=== PATIENT | male | born 1965 | race Caucasian/White ===

== ENCOUNTER → 2018-05-01 | Day surgery (SDC) | payer MEDICARE, MEDICAID ==
[~2018-05-01] MED LIST: APIDRA; ATIVAN0.5 MG PO; COREG25 MG PO; FISH OIL 1,001000 M2 PO; GLUCOPHAGE500 MG PO; HYDRALAZINE 2525 MG PO; LANTUS SC; LASIX 40 MG TAB40 M2 PO; LEVEMIR100 UNIT/1 SUBQ; LIPITOR10 MG PO; NORCO 5-325 TA1 EACH PO; NOVOLOG100 UNIT/1 SUBQ; PLAVIX 75 MG TA75 M1 PO; RENVELA800 MG PO; SERTRALINE HCL50 MG PO; SUPER CALCIUM600 MG PO; VITAMINC500 PO
[2018-05-01 06:44] LABS: HEMATOCRIT 38.6 % (42.0-52.0); HEMOGLOBIN 12.9 gm/dL (14.0-18.0); MCH 29.5 pg (26.0-34.0); MCHC 33.5 g/dL (28.0-37.0); MPV 6.9 fl. (7.2-11.1); RBC 4.38 mil/uL (4.50-6.00); RDW-CV 16.6 % (10.5-14.5); WBC 5.3 thou/uL (4.0-11.0)
[2018-05-01 06:54] LABS: INR 1.1
[2018-05-01 06:55] LABS: CALCIUM 8.8 mg/dL (8.5-10.1); CREATININE 5.1 mg/dL (0.6-1.3); POTASSIUM 3.7 mmol/L (3.5-5.1)
[2018-05-01 07:00] LABS: ALBUMIN 3.9 g/dL (3.4-5.0); TOTAL BILIRUBIN 1.6 mg/dL (<0.1-1.0); TOTAL PROTEIN 8.1 g/dL (6.4-8.2)
--- NOTE | 2018-05-01 15:00 | EKG ---
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 05/01/18 1500 0734 Balbir Darnell MD, [facility] /EPI
--- NOTE | 2018-05-06 14:06 | PATH ---
[facility] [address] [place] [address] PATHOLOGY RPT PROCEDURE Name: MIRANDA VELAZQUEZ [id number] Admission: 05/01/18 Date of : 65 Discharge: Report #: [id number] Path Case #: [id number] [facility] Accession Number: [id number] . 01 Material submitted: . PART A: ESOPHAGEAL BIOPSY AT 37CM PART B: ESOPHAGEAL BIOPSY AT 32CM . 01 Clinical history: . Dysphagia . 02 Diagnosis: A. Esophageal biopsy at 37 cm: - Mild chronic esophagitis typical of reflux. See comment. . B. Esophageal biopsy at 32 cm: - Mild chronic esophagitis typical of reflux. See comment. QT/05/06/2018 . 02 Comment: Eosinophils average less than five per high power field in both of the biopsies. (DYLON:pit 05/06/2018) . 02 Electronically signed: . Dani Lu MD, Pathologist NPI- [id number] . 01 Gross description: . A. Received in formalin labeled "Miranda Velazquez, esophageal biopsy at 37 cm for dysphagia," are 2 segments of beck soft tissue measuring 0.7 x 0.2 x 0.1 cm in aggregate dimensions and ranging from 0.3 to 0.4 cm in maximum dimension. The specimen is submitted entirely in cassette A1. . B. Received in formalin labeled "Miranda Velazquez, esophageal biopsy at 32 cm for dysphagia," are 2 segments of beck soft tissue measuring 1.1 x 0.2 x 0.1 cm in aggregate dimensions and ranging from 0.4 to 0.7 cm in maximum dimension. The specimen is submitted entirely in cassette B1. (TSD; 05/04/2018) TOB/TOB . 02 Pathologist provided ICD-10: K20.9 . 02 CPT . 159519, 182307 Specimen Comment: A courtesy copy of this report has been sent to Specimen Comment: [phone], [place] [address] PATHOLOGY RPT PROCEDURE Name: MIRANDA VELAZQUEZ VALERIO [facility] [id number] Admission: 05/01/18 Date of : 65 Discharge: Report #: [id number] Path Case #: [id number] Specimen Comment: Report sent to and Performed at: 01 [facility] [address], [place], [place] [id number] MD Yahir Jackman MD Phone: [phone] Performed at: 02 [facility] [address], [place], [place] [address] MD Dani Lu MD Phone: [phone]
== END | disposition home or self-care (01) ==
LOC: M.SUR 06:19
PROVIDERS: Internal Medicine Gastroenterology
DX: K20.8 Other esophagitis (principal); K44.9 Diaphragmatic hernia without obstruction or gangrene; I10 Essential (primary) hypertension; I25.10 Atherosclerotic heart disease of native coronary artery without angina pectoris; E11.9 Type 2 diabetes mellitus without complications; E78.5 Hyperlipidemia, unspecified; F32.9 Major depressive disorder, single episode, unspecified; Z98.82 Breast implant status; Z79.02 Long term (current) use of antithrombotics/antiplatelets; Z99.2 Dependence on renal dialysis; Z88.8 Allergy status to other drugs, medicaments and biological substances; Z79.899 Other long term (current) drug therapy

== ENCOUNTER → 2018-05-22 | Outpatient (CLI) | payer MEDICARE, MEDICAID | LOC: M.RAD 05-11 11:00 | DX: R13.12 Dysphagia, oropharyngeal phase (principal); R05 Cough; R11.0 Nausea ==

== ENCOUNTER 2020-07-27 08:23 | Inpatient (IN) | payer MEDICARE, MEDICAID ==
[2020-07-27] VITALS (46 sets, daily range): BP systolic 106–169; BP diastolic 48–106
[~2020-07-27] VITALS: Ht 175.3 cm; Wt 77.5 kg
--- NOTE | ~2020-07-27 | EMS ---
[place] [address] EMS Patient Care Report Name: MIRANDA VELAZQUEZ Room: [address] IN M.R.#: [id number] Admission: 07/27/20 Attend Phys: Syed Haji MD Discharge: Date of : 65 Report #: [id number] THIS REPORT FOR: //name// Report Transmitted: 07/27/2020 18:24 EMS Care Summary [facility] Incident [id number] @ 07/27/2020 07:41 Incident Location [address] [place] [address] 13 room 16 Patient MIRANDA VELAZQUEZ Male, 55 Years 1965 Patient Address [address] [place] [address] Patient History Congestive Heart Failure (CHF),Chronic Obstructive Pulmonary Disease (COPD),Diabetes,Hypertension (HTN),Kidney/Renal Failure,Chronic Pain,Dialysis, Patient Allergies Morphine,Lisinopril,Reglan, Patient Medications Lasix, Metformin, Metoprolol, Ibuprofen, Chief Complaint Altered mental status Disposition Transported Lights/[place] Dispatch Reason Unknown Problem/Person Down Transported To [facility] Narrative Dispatch: [facility] was dispatched for a male patient who is unresponsive on his floor, last known well 48 hours prior. Med 1 copied tones [place] [address] EMS Patient Care Report Name: MIRANDA VELAZQUEZ Room: [address] IN [facility]#: [id number] Admission: 07/27/20 Attend Phys: Syed Haji MD Discharge: Date of : 65 Report #: [id number] Chief Complaint: Med 1 arrived on scene to find the patient lying supine on the floor. Patient is alert and does appear to be in mild distress. Patient is A&OX4, GCS 15. Patient is naked and covered in feces. Patient states he does not remember how he got onto the floor, and is unable to tell EMS if he is hurting anywhere. History of present illness/DARRYL: Patient is in stage 4 kidney failure and was supposed to receive dialysis on the morning of 07/27/20. When the patient did not answer the door for the [employer] independent driver, the independent driver called 911 for an unresponsive patient. Patient is semi compliant with his dialysis treatments, per the independent driver. Assessment: Airway: Clear, patent, and self maintained. Breathing: Clear, and equal bilaterally. Non labored. Circulation: Skin is pink, warm, and dry. Strong radial pulses. Disability: A&OX4, GCS 15. Exposures: No life threats were found. See "assessments" tab for further. 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 Treatments: ALS assessment. Cervical collar. 20G IV RAC. 12 lead EKG showing new onset RBBB STEMI activation. Serial 12 lead EKG's. ETCO2 via nasal cannula at 2 liters O2. Vitals monitored throughout transport. Summary: With the assistance of EMS and HFD, the patient was placed onto the monitor and an IV was established. A cervical collar was placed as well. Med 1 went en route emergent to [facility]. Radio report was given and a STEMI activation was made with no further questions or orders were received. The patient's overall condition declined throughout transport. The patient became altered and was sluggish to respond to tasks. Med 1 arrived at destination and was taken to room 1 in the ED where he was sheet transferred onto the bed. Report was given and signatures and paperwork were received. Med 1 returned back in service. Initial Vitals @08:01P: 132,R: 21,EtCO2: 14,SpO2: 98,[place] Suspected: false @08:18P: 141,R: 21,EtCO2: 31, @08:10 @08:26P: 143,R: 19,BP: 131/67,EtCO2: 29, @08:29BP: 112/92, @08:13R: 22,BP: 135/63,EtCO2: 29, @07:55P: 99,R: 20,BP: 140/96,GCS: 15,Glucose: 107,Revised Trauma: 12, [place] [address] EMS Patient Care Report Name: MIRANDA VELAZQUEZ Room: [address] ADM IN M.R.#: [id number] Admission: 07/27/20 Attend Phys: Syed Haji MD Discharge: Date of : 65 Report #: [id number] @08:31P: 118,R: 20,SpO2: 97, Assessments @07:55MENTAL:Person Oriented,Time Oriented,Place Oriented,Event Oriented,SKIN:HEENT:Eyes: Left: Other,LUNG SOUNDS:ABDOMEN:PELVIS//GI:EXTREMITIES:Capillary Refill: Right Upper: < 2 Sec,PULSE:Radial: 2+ Normal,NEURO:@09:24MENTAL:Confused,Person Oriented,Event Oriented,SKIN:HEENT:Eyes: Left: Other,LUNG SOUNDS:ABDOMEN:PELVIS//GI:EXTREMITIES:Capillary Refill: Right Upper: < 2 Sec,PULSE:Radial: 2+ Normal,NEURO: Impression Altered Mental Status Procedures @08:32Saline Lock 0cc (20 ga) Site: Antecubital-RightResponse: UnchangedSucceeded@07:55ALS AssessmentResponse: UnchangedSucceeded@08:1812-Lead ECGResponse: UnchangedSucceeded@08:0112-Lead ECGResponse: UnchangedSucceeded@08:3112-Lead ECGResponse: UnchangedSucceeded@08:1312-Lead ECGResponse: UnchangedSucceeded@08:1012-Lead ECGResponse: UnchangedSucceeded@08:2612-Lead ECGResponse: UnchangedSucceeded@09:42Spinal Motion RestrictionResponse: UnchangedSucceeded Timeline 07:41,Call Received 07:41,Dispatched 07:43,En Route 07:47,On Scene 07:48,At Patient 07:55,ALS Assessment,Response: UnchangedSucceeded, 07:55,BP: 140/96 M,PULSE: 99,RR: 20 R,SPO2: Ox,ETCO2: ,B,PAIN: ,GCS: 15, 08:01,12-Lead ECG,Response: UnchangedSucceeded, 08:01,BP: / M,PULSE: 132,RR: 21 R,SPO2: 98 Ox,ETCO2: 14 ,BG: ,PAIN: ,GCS: , 08:04,Depart Scene 08:10,12-Lead ECG,Response: UnchangedSucceeded, 08:10,BP: / M,PULSE: ,RR: R,SPO2: Ox,ETCO2: ,BG: ,PAIN: ,GCS: , 08:13,12-Lead ECG,Response: UnchangedSucceeded, 08:13,BP: 135/63 M,PULSE: ,RR: 22 R,SPO2: Ox,ETCO2: 29 ,BG: ,PAIN: ,GCS: , 08:18,12-Lead ECG,Response: UnchangedSucceeded, 08:18,BP: / M,PULSE: 141,RR: 21 R,SPO2: Ox,ETCO2: 31 ,BG: ,PAIN: ,GCS: , 08:26,12-Lead ECG,Response: UnchangedSucceeded, 08:26,BP: 131/67 M,PULSE: 143,RR: 19 R,SPO2: Ox,ETCO2: 29 ,BG: ,PAIN: ,GCS: , 08:29,BP: 112/92 M,PULSE: ,RR: R,SPO2: Ox,ETCO2: ,BG: ,PAIN: ,GCS: , 08:31,12-Lead ECG,Response: UnchangedSucceeded, 08:31,BP: / M,PULSE: 118,RR: 20 R,SPO2: 97 Ox,ETCO2: ,BG: ,PAIN: ,GCS: , 08:31,[place] [address] EMS Patient Care Report Name: MIRANDA VELAZQUEZ Room: [address] IN M.R.#: [id number] Admission: 07/27/20 Attend Phys: Syed Haji MD Discharge: Date of : 65 Report #: [id number] 08:32,Saline Lock 0cc 20 ga Site: Antecubital-Right,Response: UnchangedSucceeded, 09:42,Spinal Motion Restriction,Response: UnchangedSucceeded, 11:04,Call Closed Disclaimer v1.1 Copyright 2020 [employer] This EMS Care Summary contains data elements from the applicable legal record (which may be displayed differently). It is designed to provide pertinent information for the following purposes: continuity of care, clinical quality, and state data reporting. The complete legal record is available to ED staff and administrators of the receiving hospital in [employer] Patient Tracker. All data is provided "as is."
[2020-07-27 08:53] LABS: HEMOGLOBIN 10.6 gm/dL (14.0-18.0); MCH 29.1 pg (26.0-34.0); NUCLEATED RBCS 0 /100WBC; WBC 13.8 thou/uL (4.0-11.0)
[2020-07-27 08:55] LABS: HEMATOCRIT 33.8 % (42.0-52.0); MCHC 31.2 g/dL (28.0-37.0); MCV 93.2 fL (80.0-100.0); MPV 9.2 fl. (7.2-11.1); PLATELET COUNT* 163 thou/uL (150-400); RBC 3.63 mil/uL (4.50-6.00); RDW-CV 15.8 % (10.5-14.5)
[2020-07-27 09:06] LABS: APTT 29.3 Seconds (25.0-31.3); CREATININE 15.2 mg/dL (0.6-1.3); INR 1.1; PROTIME 11.9 Seconds (9.20-11.50)
[2020-07-27 09:11] LABS: POTASSIUM 9.8 mmol/L (3.5-5.1)
[2020-07-27] MEDS ORDERED: KEPPRA XR500 MG PO (09:26)
[2020-07-27] MEDS ORDERED: ARTIFICIAL TEAR1510 OPHTHALMIC (09:27)
[2020-07-27] MEDS ORDERED: MACROBID 100 M100 MG PO (09:27)
[2020-07-27] MEDS ORDERED: PROBIOTIC1 EAC7 PO (09:29)
[2020-07-27] MEDS ORDERED: PROMETH-CODEIN 65 ML PO (09:29)
[2020-07-27] MEDS ORDERED: [UNRECOGNIZED DRUG - OTHER] (09:31)
[2020-07-27] MEDS ORDERED: MIRCERA50 MCG/0.3 IV (09:31)
--- NOTE | 2020-07-27 09:33 | NUR ---
VIVIENNE KIM CALLED FROM [facility] IN [place]. SHE STATES THAT THE PATIENT WAS SUPPOSED TO HAVE DIALYSIS TODAY AND HAS BEEN LOOKING FOR HIM. SHE INFORMED THIS RN OF THE PATIENT'S MED LIST AND STATES SHE WILL BE HAPPY TO FAX INFORMATION ABOUT HIS SCHEDULED DIALYSIS INFORMATION IF HE DOES GET DIALYSIS AT OUR FACILITY TODAY. HER PHONE NUMBER IS [phone].
[2020-07-27 09:37] LABS: ABSOLUTE LYMPHOCYTES 0.7 thou/uL (0.8-5.3); ABSOLUTE MONOCYTES 0.3 thou/uL (0.0-1.2); ABSOLUTE NEUTROPHILS 12.8 thou/uL (1.6-8.1); ANISOCYTOSIS 1+; PLATELET ESTIMATE ADEQUATE; POIKILOCYTOSIS 1+
--- NOTE | 2020-07-27 14:49 | EKG ---
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 : 1965 Requested By: Luis Manuel Ruff Order Number: [id number] MD: Dustin Gonzalez Measurements Intervals [place] Rate: 138 P: MA: QRS: 152 QRSD: 186 T: 246 QT: 284 QTc: 431 Interpretive Statements sinus rhythm artifact noted Right bundle branch block Baseline wander in lead(s) V5 Compared to ECG 05/01/2018 07:34:07 Right bundle-branch block now present Electronically Signed On 07-27-2020 14:49:07 CDT by Dustin Gonzalez [email or web address] <ELECTRONICALLY SIGNED> By: Dustin Gonzalez MD, [facility] 07/27/20 1449 0835 0835 Dustin Gonzalez MD, [facility] /EPI
--- NOTE | 2020-07-27 15:38 | EKG ---
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 : 1965 Requested By: Syed Haji Order Number: [id number] Lamar MD: Dustin Gonzalez Measurements Intervals [place] Rate: 134 P: FL: QRS: 132 QRSD: 188 T: 209 QT: 331 QTc: 495 Interpretive Statements RBBB and LPFB wide complex rhythm, consider accelerated idioventricular rhythm Compared to ECG 07/27/2020 08:35:53 no change Electronically Signed On 07-27-2020 15:38:36 CDT by Dustin Gonzalez [email or web address] <ELECTRONICALLY SIGNED> By: Dustin Gonzalez MD, [facility] 07/27/20 1538 0855 0855 Dustin Gonzalez MD, [facility] /EPI
[2020-07-27 17:21] LABS: CALCIUM 8.9 mg/dL (8.5-10.1); POTASSIUM 5.1 mmol/L (3.5-5.1)
[2020-07-27 17:23] LABS: CREATININE 6.1 mg/dL (0.6-1.3)
--- NOTE | 2020-07-27 19:47 | NUR ---
1630 PATIENT WAS NOTED TO HAVE O2 SATS DECREASING INTO THE 70'S NURSE WENT TO CHECK ON PATIENT. PATIENT WAS FOUND TO BE HAVING A SEIZURE.AND LIPS WHERE TURNING BLUE, SATS DECREASING INTO 42% CODE BLUE CALLED AND BAGGING INTIATED. PATIENT PLACED ON SIDE. IT IS THOUGHT THAT DURING SEIZURE PATIENT TOUNGUE COVERED AIRWAY. DR DE SANTIAGO UPDATED AND ORDERS RECIEVED, CECIL STARTED. PATIENT IS POST ICTAL. NO FURTHER CONCERNS AT THIS TIME. WILL CONTINUE TO ,MONITOR AND CARE PER PLAN OF CARE.
[2020-07-28] VITALS (58 sets, daily range): BP systolic 82–183; BP diastolic 41–143
[2020-07-28 04:19] LABS: HEMATOCRIT 29.3 % (42.0-52.0); HEMOGLOBIN 9.7 gm/dL (14.0-18.0); MCH 29.8 pg (26.0-34.0); MCV 90.4 fL (80.0-100.0); MPV 8.5 fl. (7.2-11.1); RBC 3.24 mil/uL (4.50-6.00); RDW-CV 15.7 % (10.5-14.5); WBC 6.4 thou/uL (4.0-11.0)
[2020-07-28 04:28] LABS: CALCIUM 7.9 mg/dL (8.5-10.1); MAGNESIUM 2.6 mg/dL (1.8-2.4); POTASSIUM 5.4 mmol/L (3.5-5.1)
[2020-07-28 04:33] LABS: CREATININE 7.9 mg/dL (0.6-1.3)
--- NOTE | 2020-07-28 10:24 | CON ---
[address] [address] CONSULTATION Name: MIRANDA VELAZQUEZ Room: [address] IN .R.#: [id number] Admission: 07/27/20 Attend Phys: Syed Haji MD Discharge: Date of : 65 Report #: [id number] THIS REPORT FOR: cc: Fracisco Broderick MD, Syed MD ~ Roger Santiago MD DATE OF SERVICE: 07/27/2020 REQUESTING PHYSICIAN: Syed Haji MD REASON FOR CONSULTATION: Hyperkalemia and end-stage renal disease. HISTORY OF PRESENT ILLNESS: The patient is a 55-year-old white male with medical history significant for end-stage renal disease. He has been on dialysis on Friday, , and Friday schedule at [facility]. His last dialysis was a week ago. The patient presents with altered mental status. He was found by some workers at hotel where the patient was staying. His potassium was 9.8, blood sugar was low, was admitted to the hospital. PAST MEDICAL HISTORY: 1. End-stage renal disease. 2. Diabetes mellitus type 2. 3. History of multiple strokes. 4. History of coronary artery disease. FAMILY HISTORY: Noncontributory. SOCIAL HISTORY: Unknown. REVIEW OF SYSTEMS: The patient is very shaky. He ____ does not really answer some very simple questions. PHYSICAL EXAMINATION: GENERAL: He is on dialysis. He is awake. VITAL SIGNS: Blood pressure now 150/58, heart rate 89, afebrile. HEENT: Pupils are round. NECK: Supple. LUNGS: Decreased air movements. CARDIOVASCULAR: Tachycardia. ABDOMEN: Soft. LOWER EXTREMITIES: No edema. ASSESSMENT: 1. End-stage renal disease. [address] [address] CONSULTATION Name: MIRANDA VELAZQUEZ Room: [address]#: [id number] Admission: 07/27/20 Attend Phys: Syed Haji MD Discharge: Date of : 65 Report #: [id number] 2. Hyperkalemia due to noncompliance with his dialysis. His potassium was 9.8. 3. Noncompliance with dialysis. 4. Diabetes mellitus type 2. PLAN: Dialysis today and tomorrow. <ELECTRONICALLY SIGNED> By: Roger Santiago MD 07/28/20 1024 1153 1312Aleonel Santiago MD /nt
--- NOTE | 2020-07-28 16:00 | NUR ---
PT.HAD STATED EARLIER THAT HE WANTED TO MAKE SURE DAUGHTER KNEW HE WAS IN THE HOSPITAL. CM CALLED DAUGHTER,JUAQUIN KATZ AT [phone] TO MAKE SURE SHE KNEW. SHE WAS NOT AWARE HE WAS IN THE HOSPITAL. SHE SAID THEY DON'T TALK ALL THE TIME BUT SHE IS THE ONLY ONE HE TALKS TO. TOLD HER HE WOULD BE MOVING OUT OF ICU THIS EVENING TO TELE FLOOR AND HE WAS DOING BETTER. DISCUSSED PLAN OF CARE. SHE WAS GOING TO CALL THE HOTEL WHERE HE LIVES TO LET THEM KNOW HE IS IN THE HOSPITAL. SHE WOULD LIKE TO BE KEPT INFORMED OF HOW HE IS DOING.
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
--- NOTE | 2020-07-28 18:33 | NUR ---
Patient had dailysis this shift. During treatment patient went into Afib RVR. 5mg Metoprolol order by Dr Haji. Not effective. Order for cardizem drip and titrate to keep HR under 100.
--- NOTE | 2020-07-28 22:59 | NUR ---
2119 PT TO BEDSIDE COMMODE WITH STANDBY ASSIST. PT BECAME INCREASINGLY LESS RESPONSIVE, HYPOTENSIVE AND LEANING TO RIGHT. UNABLE TO STAND OR FOLLOW COMMANDS. TRANSFER TO BED WITH ASSIST OF TWO NURSES. DILTIAZEM STOPPED. 2129 PT ABLE TO ANSWER QUESTIONS AND FOLLOW COMMANDS.
[2020-07-29] VITALS (27 sets, daily range): BP systolic 95–163; BP diastolic 54–86
[2020-07-29 05:00] LABS: CREATININE 5.9 mg/dL (0.6-1.3); MAGNESIUM 2.4 mg/dL (1.8-2.4); POTASSIUM 4.7 mmol/L (3.5-5.1)
--- NOTE | 2020-07-29 15:46 | NUR ---
PATIENT TRANSFERRED TO TELE. ABLE TO GET UP WITH [employer] [facility] TO WHEELCHAIR FOR TRANSPORT. PERSONAL BELONGINGS PACKED AND SENT WITH TECH. PATIENT FINISHED DAILYSIS BEFORE TRANSFER. KEPPRA GIVEN AFTET TREATMENT. FAMILY AWARE OF TRANSFER.
--- NOTE | 2020-07-29 17:25 | NUR ---
RECEIVED REPORT FROM JULIO MURCIA. PT TRANSFER FROM ICU. ARRIVED ON UNIT AROUND 1420. PT BLIND BILATERALLY. SEIUZER PRECAUTIONS. BED RAILS PADDED. ORIENTED TO ROOM. PT HAS SOME CONFUSION. HALLUCINATED. DID NOT KNOW HE WAS IN THE HOSPITAL. PT LYING IN BED. 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 UP ASSIST X1 TO 2. MEDS GIVEN PER MAR. HOURLY ROUNDING PERFORMED. CALL LIGHT WITHIN REACH. WILL CONTINUE TO MONITOR.
[2020-07-30 04:12] VITALS: BP 147/80
--- NOTE | 2020-07-30 04:55 | NUR ---
PT ALERT TO SELF AND SITUATION. PT IS BLIND AND IS HAVING VISUAL HALLUCINATIONS. IMPULSIVE, ATTEMPTING TO GET OOB. OLIGURIC, AV FISTULA ON L FA WITH DRSG D/I. SEIZURE PRECAUTIONS IN PLACE. PT DC'D ONE OF HIS SALINE LOCKS. TELEMETRY SHOWS SR.
[2020-07-30 05:16] LABS: MAGNESIUM 2.3 mg/dL (1.8-2.4); POTASSIUM 4.8 mmol/L (3.5-5.1)
[2020-07-30 05:17] LABS: CREATININE 4.5 mg/dL (0.6-1.3)
[2020-07-30 08:00] VITALS: BP 112/71
[2020-07-30 12:00] VITALS: BP 115/80
[2020-07-30 16:00] VITALS: BP 103/69
--- NOTE | 2020-07-30 19:01 | NUR ---
RECEIVED REPORT AROUND 0715. ASSUMED CARE. VS AND ASSESSMENT CHARTED. IV INTACT. HEART MONITOR ATTACHED AT SR. PT SAT UP IN CHAIR FOR A WHILE HAD 2 BOWEL MOVEMENTS. INCONTINENT. LYING IN BED CURRENTLY. MEDS GIVEN PER MAR. HOURLY ROUNDING PERFORMED. CALL LIGHT WITHIN REACH. WILL CONTINUE TO MONITOR.
[2020-07-30 20:00] VITALS: BP 134/66
[2020-07-31] VITALS: BP 134/66
[2020-07-31 04:35] LABS: CALCIUM 7.7 mg/dL (8.5-10.1); MAGNESIUM 2.3 mg/dL (1.8-2.4); POTASSIUM 5.2 mmol/L (3.5-5.1)
[2020-07-31 04:36] LABS: CREATININE 6.3 mg/dL (0.6-1.3)
[2020-07-31 05:41] VITALS: BP 145/72
--- NOTE | 2020-07-31 06:22 | NUR ---
PT RESTED WELL THIS SHIFT. ALERT ORIENTED TO PERSON AND PLACE. ON RA. L AV FISTULA. ON RA. TELEMETRY SHOWS SR.
[2020-07-31 07:45] VITALS: BP 136/66
[2020-07-31 12:00] VITALS: BP 136/69
--- NOTE | 2020-07-31 14:56 | NUR ---
PT ROUNDS: PT CONT ON SEIZURE PRECAUTIONS; IV CECIL. NEPHROLOGY FOLLOWING. HEMODIALYSIS T,TH,S. PLAN FOR DIALYSIS TOMORROW. PT/OT ONGOING.
[2020-07-31 16:39] VITALS: BP 136/77
--- NOTE | 2020-07-31 19:02 | NUR ---
patient resting in room with eyes closed. drowsy but arouses to stimuli. Alert and oriented but drowsy. call light and belongings within reach. up to bedside commode with assist today. report being given to cook night nurse. continue plan of care.
[2020-07-31 20:00] VITALS: BP 141/74
[2020-08-01 02:03] VITALS: BP 137/74
[2020-08-01 07:13] LABS: CALCIUM 7.7 mg/dL (8.5-10.1); POTASSIUM 5.3 mmol/L (3.5-5.1)
[2020-08-01 08:00] VITALS: BP 138/68
[2020-08-01 12:00] VITALS: BP 125/64
--- NOTE | 2020-08-01 16:14 | NUR ---
POC UPDATE: PT SCHD FOR HEMODIALYSIS TODAY. CONT [facility] ON THE IMPORTANCE OF DIALYSIS COMPLIANCE.
--- NOTE | 2020-08-01 19:02 | NUR ---
RECEIVED REPORT AROUND 0715. ASSUMED CARE. VS AND ASSESSMENT CHARTED. IV INTACT. HEART MONITOR ATTACHED AT SR. PT LYING IN BED. DIALYSIS TODAY. 1/2 LITER PULLED OFF. VS STABLE. MEDS GIVEN PER JUL. HOURLY ROUNDING PERFORMED. NO PAIN REPORTED. CALL LIGHT WITHIN REACH. WILL CONTINUE TO MONITOR.
[2020-08-01 19:37] VITALS: BP 130/67
[2020-08-02 00:08] VITALS: BP 110/49
[2020-08-02 04:38] VITALS: BP 125/59
--- NOTE | 2020-08-02 04:42 | NUR ---
PATIENT HAS REMAINED ALERT AND ORIENTED X 4 THROUGHOUT THE SHIFT AND RESTING QUIETLY ON HOURLY ROUNDS. STATED TIRED AFTER DIALYSIS YESTERDAY BUT OTHERWISE WITHOUT COMPLAINT. NO SEIZURE ACTIVITY NOTED. VITAL SIGNS STABLE. MEDS PER ORDER. CONTINUE TO MONITOR.
[2020-08-02 05:20] LABS: HEMATOCRIT 29.8 % (42.0-52.0); HEMOGLOBIN 9.8 gm/dL (14.0-18.0); MCH 29.8 pg (26.0-34.0); MCHC 33.1 g/dL (28.0-37.0); MCV 90.3 fL (80.0-100.0); MPV 8.1 fl. (7.2-11.1); RBC 3.3 mil/uL (4.50-6.00); RDW-CV 15.4 % (10.5-14.5); WBC 5.5 thou/uL (4.0-11.0)
[2020-08-02 05:29] LABS: CALCIUM 7.5 mg/dL (8.5-10.1); POTASSIUM 4.3 mmol/L (3.5-5.1)
[2020-08-02 08:00] VITALS: BP 129/66
--- NOTE | 2020-08-02 10:35 | NUR ---
RECEIVED REPORT AROUND 0715. ASSUMED CARE. VS AND ASSESSMENT CHARTED. IV INTACT RIGHT WRIST. HEART MONITOR ATTACHED AT SR. PT LYING IN BED. NO PAIN THIS AM. MEDS GIVEN PER JUL. CALL LIGHT WITHIN REACH. WILL CONTINUE TO MONITOR.
[2020-08-02 12:31] VITALS: BP 114/57
[2020-08-02] MEDS ORDERED: ELIQUIS5 MG PO (13:00)
[2020-08-02 13:58] VITALS: BP 114/57
--- NOTE | 2020-08-02 13:58 | NUR ---
Pt discharging to home today. CM spoke with Irma at [facility] in [place], informed of dc today. Faxed referral and flowsheets. Cab voucher provided, nurse to arrange.
--- NOTE | 2020-08-02 15:34 | NUR ---
RECEIVED DISCHARGE ORDERS. IV TAKEN OUT. HEART MONITOR OFF. DISCHARGE PAPERWORK GIVEN TO PT. COMMUNICATED UNDERSTANDING. PT LEFT UNIT VIA WHEELCHAIR WITH NURSING STAFF AND ALL BELONINGS AT 1530.
== END 2020-08-02 15:29 | disposition home or self-care (01) | DRG 280 ==
LOC: M.ERS 08:23 → M.TBA-ER 10:19 → M.ICU 10:19 → M.2W 07-29 14:20
PROVIDERS: Emergency Medicine Emergency Medical Services; Family Medicine; Internal Medicine; ADMIT Internal Medicine; ATTEND Internal Medicine
PROC: 5A1D70Z Performance of Urinary Filtration, Intermittent, Less than 6 Hours Per Day (ICD-10-PCS; principal; 2020-07-27)
PROC: 5A1D70Z Performance of Urinary Filtration, Intermittent, Less than 6 Hours Per Day (ICD-10-PCS; 2020-07-29)
PROC: 5A1D70Z Performance of Urinary Filtration, Intermittent, Less than 6 Hours Per Day (ICD-10-PCS; 2020-08-01)
DX: I21.3 ST elevation (STEMI) myocardial infarction of unspecified site (principal); G92 Toxic encephalopathy; N18.6 End stage renal disease; I48.20 Chronic atrial fibrillation, unspecified; I13.2 Hypertensive heart and chronic kidney disease with heart failure and with stage 5 chronic kidney disease, or end stage renal disease; I45.5 Other specified heart block; E87.5 Hyperkalemia; E10.22 Type 1 diabetes mellitus with diabetic chronic kidney disease; G89.29 Other chronic pain; I25.10 Atherosclerotic heart disease of native coronary artery without angina pectoris; I48.0 Paroxysmal atrial fibrillation; E87.6 Hypokalemia; I50.9 Heart failure, unspecified; D63.1 Anemia in chronic kidney disease; Z20.822 Contact with and (suspected) exposure to COVID-19; Z86.73 Personal history of transient ischemic attack (TIA), and cerebral infarction without residual deficits; Z90.49 Acquired absence of other specified parts of digestive tract; Z79.4 Long term (current) use of insulin; Z79.899 Other long term (current) drug therapy; Z91.14 Patient's other noncompliance with medication regimen; Z79.01 Long term (current) use of anticoagulants; Z88.5 Allergy status to narcotic agent; Z88.8 Allergy status to other drugs, medicaments and biological substances; Z99.2 Dependence on renal dialysis; Z91.15 Patient's noncompliance with renal dialysis